=== PATIENT | female | born 1995 | race Caucasian/White ===

== ENCOUNTER → 2018-06-03 | Outpatient (REF) | payer OTHER | LOC: M SFHCLERA 13:51 | PROVIDERS: ATTEND Nurse Practitioner Family | DX: R53.81 Other malaise (principal) ==

== ENCOUNTER → 2018-09-08 | Outpatient (CLI) | payer OTHER ==
[2018-09-08 16:30] LABS: CREATININE, URINE 78.5 MG/DL; MALB URINE SIEMENS 6.7 MG/L; MAU/CREAT RATIO 8.5 MCG/MG (0.0-30.0)
[2018-09-08 16:34] LABS: ALBUMIN 3.8 GM/DL (3.2-5.2); ALT/SGPT 23 U/L (12-78); BILIRUBIN,TOTAL 0.6 MG/DL (0.2-1.0); BLOOD UREA NITROGEN 7 MG/DL (7-18); CALCIUM LEVEL 8.7 MG/DL (8.5-10.1); CARBON DIOXIDE LEVEL 29 MEQ/L (21-32); CHLORIDE LEVEL 105 MEQ/L (98-107); CHOLESTEROL LEVEL 190 MG/DL (<200); CHOLESTEROL RISK RATIO 2.567 (<5); CREATININE FOR GFR 0.74 MG/DL (0.55-1.30); GLOMERULAR FILTRATION RATE > 60.0 (>60); GLUCOSE, FASTING 93 MG/DL (70-100); HDL CHOLESTEROL 74 MG/DL (>40); LDL CHOLESTEROL 106 MG/DL (<100); NON-HDL-C 116 MG/DL; SODIUM LEVEL 138 MEQ/L (136-145); TOTAL PROTEIN 7.1 GM/DL (6.4-8.2); TRIGLYCERIDES LEVEL 52 MG/DL (<150)
[2018-09-08 16:36] LABS: TOTAL 25(OH) VITAMIN D 29.4 NG/ML (30.0-100.0)
== END ==
LOC: M LAB 15:21
PROVIDERS: ATTEND Internal Medicine Endocrinology, Diabetes & Metabolism
DX: E10.65 Type 1 diabetes mellitus with hyperglycemia (principal); E04.0 Nontoxic diffuse goiter; E55.9 Vitamin D deficiency, unspecified

== ENCOUNTER 2019-04-07 20:18 | Emergency (ER) | payer OTHER ==
[~2019-04-07] VITALS: Ht 167.6 cm; Wt 68.2 kg
[2019-04-07] MEDS ORDERED: INSULIN PUMP (20:32)
[2019-04-07] MEDS ORDERED: HUMA100I3 SC (20:32)
[2019-04-07] MEDS ORDERED: BCP PO (20:32)
[2019-04-07 21:09] LABS: BASO # 0.1 10^3/uL (0.0-0.2); BASO % 0.3 % (0.0-1.0); HEMATOCRIT 43.4 % (36.0-47.0); LYMPH # 1.7 10^3/uL (1.5-5.0); LYMPH % 5.8 % (24.0-44.0); MEAN CORPUSCULAR HGB CONC 32.3 g/dl (32.0-36.5); MEAN CORPUSCULAR VOLUME 92.9 fl (80.0-96.0); MONO # 1.9 10^3/uL (0.0-0.8); MONO % 6.5 % (0.0-5.0); NEUTROPHILS % 86.5 % (36.0-66.0); PLATELET COUNT, AUTOMATED 278 10^3/uL (150-450); RED BLOOD COUNT 4.67 10^6/uL (4.00-5.40); WHITE BLOOD COUNT 29.6 10^3/uL (4.0-10.0)
[2019-04-07 21:36] LABS: ALBUMIN 3.5 GM/DL (3.2-5.2); ALT/SGPT 18 U/L (12-78); BILIRUBIN,DIRECT 0.2 MG/DL (0.0-0.2); BILIRUBIN,TOTAL 0.8 MG/DL (0.2-1.0); BLOOD UREA NITROGEN 11 MG/DL (7-18); CARBON DIOXIDE LEVEL 25 MEQ/L (21-32); CHLORIDE LEVEL 100 MEQ/L (98-107); CREATININE FOR GFR 0.93 MG/DL (0.55-1.30); GLOMERULAR FILTRATION RATE > 60.0 (>60); GLUCOSE, FASTING 293 MG/DL (70-100); LIPASE 54 U/L (73-393); SODIUM LEVEL 134 MEQ/L (136-145); TOTAL PROTEIN 6.8 GM/DL (6.4-8.2)
[2019-04-07 21:38] LABS: HCG, SERUM QUALITATIVE NEGATIVE (NEGATIVE)
[2019-04-07] MEDS ORDERED: ISOVUE-370 76% 100ML VIAL (Q9967) As Ordered ONE (21:42)
[2019-04-07] MEDS ORDERED: NS 1,000 ML IV ONE (21:45)
[2019-04-07] MEDS ORDERED: KETOROLAC 30 MG/ML VIAL (J1885) IV ONE (21:45)
[2019-04-07 21:46] LABS: NEUTROPHILS # 25.6 10^3/uL (1.5-8.5)
--- NOTE | 2019-04-07 22:15 | REPVR ---
PROCEDURE INFORMATION: Exam: CT Abdomen And Pelvis Without Contrast Exam date and time: 04/07/2019 9:46 PM Age: 23 years old Clinical history: Abdominal pain; Localized; Right; Additional info: R side abd pain R/O urolithiasis, appendicitis TECHNIQUE: Imaging protocol: Computed tomography of the abdomen and pelvis without contrast. Axial, coronal and sagittal reformatted images were created and reviewed. Radiation optimization: All CT scans at this facility use at least one of these dose optimization techniques: automated exposure control; mA and/or kV adjustment per patient size (includes targeted exams where dose is matched to clinical indication); or iterative reconstruction. COMPARISON: No relevant prior studies available. FINDINGS: Mediastinum: Small hiatal hernia. Liver: Unremarkable. Gallbladder and bile ducts: No radiodense gallstones. No biliary ductal dilatation. Pancreas: Unremarkable. Spleen: Unremarkable. Adrenals: Unremarkable. Kidneys and ureters: Mild right perinephric stranding and edema, tracking into the right paracolic gutter. No radiodense calculi. No hydronephrosis. Stomach and bowel: No bowel wall thickening. No obstruction. No pneumatosis. Appendix: Normal. Intraperitoneal space: Trace nonspecific free pelvic fluid, likely physiologic. No organized fluid collection. No free air. Vasculature: Unremarkable. No aneurysm. Lymph nodes: No pathologically enlarged lymph nodes. Bladder: Mild circumferential urinary bladder wall thickening, likely secondary to underdistention. Reproductive: Unremarkable. Bones/joints: No acute osseous abnormality. Soft tissues: Unremarkable. IMPRESSION: 1. Mild right perinephric stranding/edema and circumferential urinary bladder wall thickening without radiodense calculi or hydronephrosis, raising concern for urinary tract infection/pyelonephritis. Correlate with urinalysis. 2. Additional findings, as above. Electronically signed by: Dinesh Frank On 04/07/2019 22:14:48 PM
[2019-04-07] MEDS ORDERED: CIPROFLOXACIN 400 MG in IV 1 EA IV ONE (22:30)
[2019-04-07] MEDS ORDERED: OXYCODONE/APAP 5MG/325MG(BULK FOR ED) 1 TABLET PO ONE (22:45)
[2019-04-07] MEDS ORDERED: BACTRIM 160MG/800MG DS TAB PO ONE (22:45)
[2019-04-07] MEDS ORDERED: SULF1TAB93 PO (22:45)
[2019-04-07] MEDS ORDERED: PERCOCET 5MG/325MG TAB PO ONE (23:00)
[2019-04-07 23:13] VITALS: BP 130/72
== END 2019-04-07 23:15 | disposition home or self-care (01) ==
LOC: M ED 20:18
DX: N39.0 Urinary tract infection, site not specified (principal); R09.89 Other specified symptoms and signs involving the circulatory and respiratory systems; E11.9 Type 2 diabetes mellitus without complications; J30.2 Other seasonal allergic rhinitis; Z79.4 Long term (current) use of insulin
CPT/HCPCS: 74176; 80048; 80076; 81001; 83605; 83690; 84703; 85025; 86140; 87040; 87088; 87186; 96374; 99284; J1885

== ENCOUNTER → 2020-04-28 | Outpatient (REF) | payer OTHER ==
[~2020-04-28] MED LIST: BCP PO; HUMA100I3 SC; INSULIN PUMP; SULF1TAB93 PO
[2020-04-28 18:25] LABS: CREATININE, URINE 22.3 MG/DL; MALB URINE SIEMENS 7.6 MG/L
== END ==
LOC: M LAB REF 16:55
PROVIDERS: ATTEND Internal Medicine Endocrinology, Diabetes & Metabolism
DX: E10.65 Type 1 diabetes mellitus with hyperglycemia (principal)